=== PATIENT | male | born 1985 | race Hispanic/Latino ===

== ENCOUNTER 2022-03-22 11:51 | Emergency (ER) | payer SELFPAY ==
[~2022-03-22] VITALS: Ht 167.6 cm; Wt 81.7 kg
[~2022-03-22 11:51] MED LIST: KEFLEX500 MG PO; ZYRTEC10 MG PO
[2022-03-22] MEDS ORDERED: ONDANSETRON ODT8 MG PO (14:56)
== END 2022-03-22 15:14 | disposition home or self-care (01) ==
LOC: ED 11:51
DX: K29.00 Acute gastritis without bleeding (principal); H83.09 Labyrinthitis, unspecified ear; F17.200 Nicotine dependence, unspecified, uncomplicated
CPT/HCPCS: 36415; 80053; 83735; 85025; 96361; 96374; 99284-25; C9113; J7030; J7040